=== PATIENT | female | born 1995 | race Caucasian/White ===

== ENCOUNTER 2017-02-27 23:41 | Emergency (ER) | payer MEDICAID ==
[~2017-02-27] VITALS: Ht 154.9 cm; Wt 45.8 kg
[~2017-02-27 23:41] MED LIST: GABAPENTIN 600600 MG PO; IRON TABLETS325 MG PO; PRENTAL 1 PLUS1 TAB PO; PROMETHAZINE HC25 M1 PO; PROMETRIUM100 MG PO; SERTRALINE 100100 MG PO; ZOLOFT100 MG PO
[2017-02-28] MEDS ORDERED: NOMEDS XX (00:06)
[2017-02-28 00:26] LABS: URINE BILIRUBIN - DIPSTICK NEGATIVE (NEG); URINE BLOOD NEGATIVE (NEG)
[2017-02-28 00:28] LABS: URINE SQUAMOUS CELLS OCC #/hpf (0-5)
[2017-02-28 00:30] LABS: STREP SCREEN (RAPID) NEGATIVE
[2017-02-28] MEDS ORDERED: ZITHROMAX Z PA250 MG PO (00:45)
[2017-02-28] MEDS ORDERED: PREDNISONE 20MG20 MG PO (00:45)
--- NOTE | 2017-02-28 00:46 | Emergency Room Report ---
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 Y Clinical Suspician of Infection? Y Mental Status: 1 - Regular (Normal Baseline) Sepsis Risk:Low Sepsis Risk Have you (or family members/close friends) recently traveled outside the [place]? N If Yes, where/when: Have you had exposure to infectious disease within the past month? TB? Other? 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 No Angina: No [place]: No Hypertension? No Hyperlipidemia? No CHF? No DVT? No PE? No COPD? No Asthma? No Anemia? No GERD? No Gastric ulcers? No GI Bleed? No Hernia? No Thyroid Problems? No Hypothyroidism? No CVA? No Seizures? No Diabetes? No Renal Insuffiency? No End Stage Renal Disease? No UTI? No Stones? No BPH? No GB Disease: No Nephritic Syndrome? No Asplenia? No Hepatitis? No Sickle Cell Disease? No Arthritis? No Migraines? Yes Cataracts? No Glaucoma? No MRSA? No HIV? No TB? No Anxiety? Yes Depression? Yes Cancer? No More? 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 denies: ear discharge, epistaxis. Respiratory cough, denies shortness of breath Cardiovascular denies syncope Gastrointestinal denies diarrhea, denies vomiting Genitourinary denies: frequency, hesitancy. Musculoskeletal denies joint pain, denies joint swelling Skin denies rash Psychiatric/Neurological denies headache, denies seizure Physical Exam Vital Signs Vital Signs Date Time Temp Pulse Resp B/P Pulse O2 O2 Flow FiO2 Ox Delivery Rate 02/27 2353 98.0 93 14 143/88 100 - WBC >12,000 or <4,000 or 10% bands? 2 or more SIRS Criteria Met? B/P:143/88 MAP:121 Creatinine >2.0? UA output<0.5ml/kg/hr for 2 hrs? Platelet count >100,000? Lactate >2.0mmol/1? INR >1.2 or PTT > than 60 sec? Evidence of Organ Dysfunction? Provider documented clinical suspician of infection? Y Sepsis Criteria Count: 1 Sepsis Risk: Low Sepsis Risk General Appearance no apparent distress Eye Exam - bilateral eye PERRL, bilateral eye EOMI Ear, Nose, Throat normal ENT inspection, normal pharynx Neck supple Respiratory Status No: respiratory distress. Lung Sounds bilateral: lungs clear. 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 No Results/Orders Laboratory Tests 02/28/17 0015: Influenza Type A Ag NOT DETECTED, Influenza Type B Ag NOT DETECTED, Urine Color YELLOW, Urine Appearance CLEAR, Urine pH 6.0, Ur Specific [place] <= 1.005, Urine Protein NEGATIVE, Urine Ketones NEGATIVE, Urine Blood NEGATIVE, Urine Nitrate NEGATIVE, Urine Bilirubin NEGATIVE, Urine Urobilinogen 0.2, Ur Leukocyte Esterase NEGATIVE, Urine WBC OCC, Ur Squamous Epith Cells OCC, Urine Glucose NEGATIVE Orders Procedure Date/time Status CULTURE, THROAT 02/28 0015 Active STREP SCREEN THROAT 02/28 0003 Complete INFLUENZA A&B ANTIGENS 02/28 3 Complete URINALYSIS/COMPLETE 02/27 2353 Complete URINE 02/27 2353 Complete Departure Departure Time of Disposition 41 Disposition DC Home or Self Care(routine) Clinical Impression Primary Impression: Pharyngitis Qualifiers: Pharyngitis/tonsillitis etiology: unspecified etiology Qualified Code: J02.9 - Acute pharyngitis, unspecified Condition STABLE Referrals JOSE RAFAEL NEGRON (Family) Patient Instructions DI for Pharyngitis/Tonsillopharyngitis -- Adult Additional Instructions fluids and see pcp for follow up and use meds Discharge Counseling Counseled pt/family regarding diagnosis, test results, medications/RX, follow up needs Prescriptions Current Visit Scripts Azithromycin (Zithromycin (Z-WAGNER) 250MG Tab) 250 MG PO DAILY #6 TAB TAKE TWO (2) TABLETS ON DAY 1, THEN ONE (1) TABLET DAY #2 THRU #5 Prednisone (Prednisone 20MG) 20 MG PO BID #10 TAB ED Critical Care Critical Care No at 0045
--- NOTE | 2017-02-28 00:46 | Emergency Room Report ---
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 Y Clinical Suspician of Infection? Y Mental Status: 1 - Regular (Normal Baseline) Sepsis Risk:Low Sepsis Risk Have you (or family members/close friends) recently traveled outside the [place]? N If Yes, where/when: Have you had exposure to infectious disease within the past month? TB? Other? 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 No Angina: No [place]: No Hypertension? No Hyperlipidemia? No CHF? No DVT? No PE? No COPD? No Asthma? No Anemia? No GERD? No Gastric ulcers? No GI Bleed? No Hernia? No Thyroid Problems? No Hypothyroidism? No CVA? No Seizures? No Diabetes? No Renal Insuffiency? No End Stage Renal Disease? No UTI? No Stones? No BPH? No GB Disease: No Nephritic Syndrome? No Asplenia? No Hepatitis? No Sickle Cell Disease? No Arthritis? No Migraines? Yes Cataracts? No Glaucoma? No MRSA? No HIV? No TB? No Anxiety? Yes Depression? Yes Cancer? No More? 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 denies: ear discharge, epistaxis. Respiratory cough, denies shortness of breath Cardiovascular denies syncope Gastrointestinal denies diarrhea, denies vomiting Genitourinary denies: frequency, hesitancy. Musculoskeletal denies joint pain, denies joint swelling Skin denies rash Psychiatric/Neurological denies headache, denies seizure Physical Exam Vital Signs Vital Signs Date Time Temp Pulse Resp B/P Pulse O2 O2 Flow FiO2 Ox Delivery Rate 02/27 2353 98.0 93 14 143/88 100 - WBC >12,000 or <4,000 or 10% bands? 2 or more SIRS Criteria Met? B/P:143/88 MAP:121 Creatinine >2.0? UA output<0.5ml/kg/hr for 2 hrs? Platelet count >100,000? Lactate >2.0mmol/1? INR >1.2 or PTT > than 60 sec? Evidence of Organ Dysfunction? Provider documented clinical suspician of infection? Y Sepsis Criteria Count: 1 Sepsis Risk: Low Sepsis Risk General Appearance no apparent distress Eye Exam - bilateral eye PERRL, bilateral eye EOMI Ear, Nose, Throat normal ENT inspection, normal pharynx Neck supple Respiratory Status No: respiratory distress. Lung Sounds bilateral: lungs clear. 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 No Results/Orders Laboratory Tests 02/28/17 0015: Influenza Type A Ag NOT DETECTED, Influenza Type B Ag NOT DETECTED, Urine Color YELLOW, Urine Appearance CLEAR, Urine pH 6.0, Ur Specific [place] <= 1.005, Urine Protein NEGATIVE, Urine Ketones NEGATIVE, Urine Blood NEGATIVE, Urine Nitrate NEGATIVE, Urine Bilirubin NEGATIVE, Urine Urobilinogen 0.2, Ur Leukocyte Esterase NEGATIVE, Urine WBC OCC, Ur Squamous Epith Cells OCC, Urine Glucose NEGATIVE Orders Procedure Date/time Status CULTURE, THROAT 02/28 0015 Active STREP SCREEN THROAT 02/28 0003 Complete INFLUENZA A&B ANTIGENS 02/28 3 Complete URINALYSIS/COMPLETE 02/27 2353 Complete URINE 02/27 2353 Complete Departure Departure Time of Disposition 41 Disposition DC Home or Self Care(routine) Clinical Impression Primary Impression: Pharyngitis Qualifiers: Pharyngitis/tonsillitis etiology: unspecified etiology Qualified Code: J02.9 - Acute pharyngitis, unspecified Condition STABLE Referrals JOSE RAFAEL NEGRON (Family) Patient Instructions DI for Pharyngitis/Tonsillopharyngitis -- Adult Additional Instructions fluids and see pcp for follow up and use meds Discharge Counseling Counseled pt/family regarding diagnosis, test results, medications/RX, follow up needs Prescriptions Current Visit Scripts Azithromycin (Zithromycin (Z-WAGNER) 250MG Tab) 250 MG PO DAILY #6 TAB TAKE TWO (2) TABLETS ON DAY 1, THEN ONE (1) TABLET DAY #2 THRU #5 Prednisone (Prednisone 20MG) 20 MG PO BID #10 TAB ED Critical Care Critical Care No at 0045
[2017-02-28 01:00] VITALS: BP 140/79
== END 2017-02-28 01:14 | disposition home or self-care (01) ==
LOC: ER 23:41
PROVIDERS: Emergency Medicine
DX: J02.9 Acute pharyngitis, unspecified (principal); F41.8 Other specified anxiety disorders; Z72.0 Tobacco use

== ENCOUNTER → 2017-04-23 | Outpatient (CLI) | payer MEDICAID ==
[~2017-04-23] MED LIST changes: +NOMEDS XX; +PREDNISONE 20MG20 MG PO; +ZITHROMAX Z PA250 MG PO
[2017-04-25 06:41] LABS: Hep C Virus Ab <0.1 (0.0-0.9)
[2017-04-25 08:39] LABS: HIV Screen 4th Generation wRfx Non Reactive (Non Reactive); Rapid Plasma Reagin, Quant Non Reactive (NonRea<1:1)
== END ==
LOC: LAB 14:47
PROVIDERS: Obstetrics & Gynecology
DX: N76.1 Subacute and chronic vaginitis (principal); Z11.3 Encounter for screening for infections with a predominantly sexual mode of transmission
CPT/HCPCS: G0432

== ENCOUNTER → 2017-04-29 | Outpatient (CLI) | payer MEDICAID ==
--- NOTE | 2017-05-04 07:19 | RADIOLOGY REPORT PS360 ---
US PELVIS-TRANSVAGINAL ONLY HISTORY: Left-sided pelvic pain PELVIC PAIN ORDERING PHYSICIAN: John Rowan MD PATIENT AGE: 21 years COMPARISON: None FINDINGS: The uterus measures 7 x 3 x 4 cm. Combined endometrial thickness is 9 mm. Small hyperechoic focus is noted along the lower uterine segment within the endometrial canal. This may be due to small calcification. The left ovary is 3.4 x 2.3 cm. There a few small follicles. The right ovary is 4.3 x 2.5 cm containing multiple small follicles. Bilateral ovarian blood flow is present. No dominant cystic mass. No cul-de-sac fluid. IMPRESSION: 1. No acute finding. 2. Small hyperechoic focus in the lower uterine segment of the endometrium and may be due to small focus of calcification. 3. Small bilateral ovarian follicles
== END ==
LOC: RAD 14:15
DX: R10.2 Pelvic and perineal pain (principal)

== ENCOUNTER → 2017-05-15 | Outpatient (CLI) | payer MEDICAID ==
--- NOTE | 2017-05-16 07:31 | RADIOLOGY REPORT PS360 ---
CT ABD W/ CONTRAST CLINICAL INDICATION: VENTRAL HERNIA WITHOUT OBSTRUCTION , LEFT AND MID ABD PAIN ORDERING PHYSICIAN: John Rowan MD PATIENT AGE: 22 years TECHNIQUE axial images are obtained following the intravenous administration of 75 mL's of Isovue-370. Oral contrast was not utilized. Images were only obtained of the abdomen. COMPARISON: None FINDINGS: Lung bases are clear. The liver, spleen, adrenal glands, pancreas, gallbladder, kidneys and ureters have an unremarkable appearance. There is no evidence of abdominal wall hernia to the level 5 cm below the level of the umbilicus. No intestinal obstruction or free air. No umbilical hernia There is mild thoracolumbar curvature convex right IMPRESSION: 1. Negative CT of the abdomen. 2. No evidence of abdominal wall hernia. The abdomen is imaged to 5 cm below the level of the umbilicus. The pelvis and inguinal region is not included in the exam. 3. Mild lumbar scoliosis convex right
== END ==
LOC: RAD 12:29
DX: K43.9 Ventral hernia without obstruction or gangrene (principal)